=== PATIENT | male | born 1955 | race Caucasian/White ===

== ENCOUNTER 2022-12-02 14:30 | Outpatient (RCR) | payer MEDICARE, SELFPAY ==
--- NOTE | 2022-10-07 09:51 | PTOPEVAL1 ---
Assessment and note entered by Sakshi Almeida, PT Evaluation Information Assessment Status Evaluation Diagnosis unsteadiness on feet, other disorders of musculoskeletal system Therapy conditions gait abnormality, weakness Onset Subjective Information Has seen other therapies related to vertigo. Has aslo been diagnosed with Meniere's disease. Is on medication that helped for a while. Biggest issue is that over the time the balance has become worse . Had some medications from Dr. Harding and Dr. Antonio updated these. When walking on a daily basis, is very conscious of fall risks, and stairs with not rails.Has fallen a few times. In the last 2 months, has fallen 3-4 times. Limits activities because of fear of falling. Traveling and going to events, he will stay home if the area has lots of changes in terrain. Worked as an educator in high school Would like to be more confident in walking. Reported Pain Level Pain Score 0: Self Report Assessment PT Clinical Summary Pt presents with balance and gait abnormalities, rigidity, difficulty with coordination, decreased LE flexibility, and mildly decreased strength. Pt reports being limited in activities as he has great difficulty with changing terrain, slope, steps, and fall hazards. Reports has also fallen 3-4 times in the last 2 months at home. Pt will benefit from physical therapy to address deficits, and improve function to allow more independent and safe lifestyle. Plan of Care Interventions Gait Training,Hot Pack/Cold Pack,Manual Therapy, Neuro Re-education,Patient/Caregiver Educati, Therapeutic Activities,Therapeutic Exercise PT Services Indicated Yes Treatment Frequency and 2-3x weekly x 8 weeks Duration These treatments will address the objective and functional deficits as defined above. The patient will be advanced safely and appropriately in order for the patient to progress towards his/her prior level of function. Additional exercises will be introduced and as well as a comprehensive home exercise program upon discharge, if needed, ?to ensure carryover of functional gains achieved in the clinic. This treatment plan has been reviewed and agreement upon by the patient.
--- NOTE | 2022-10-07 09:53 | OPREHPOC ---
Outpatient Therapy Plan of Care This is a Multidisciplinary Plan of Care that may contain components documented by all disciplines (PT, OT, and ST.) PT Goal 1 Goal Pt will be independent in HEP Target Visit 12 PT Goal 2 Goal Pt will verbalize understanding of diagnosis and prognosis Target Visit 24 PT Problem 2 PT Problem #2 Impaired Balance PT Goal 1 Goal Pt will demo 5 time sit>stand test of 20 seconds or less without pushing LEs against chair Target Visit 12 PT Goal 2 Goal Pt will demo score of 5 times sit>green chain offbearer 15 seconds or less without pushing LEs against chair Target Visit 24 PT Problem 3 PT Problem #3 Impaired Gait PT Goal 1 Goal Pt will demo in 2 min walk test appropriate step length passing opposing LE consistently Target Visit 12 PT Goal 2 Goal Pt will demo in 2 min walk test full swing clearance bilat through full test Target Visit 24 PT Problem 4 PT Problem #4 Impaired Flexibility PT Goal 1 Goal Pt will demo improved flexibility of hamstrings and gastrocs to improve gait pattern.
--- NOTE | 2022-11-04 16:31 | PTOPPROG ---
Assessment and note entered by Sakshi Almeida, PT Assessment Status Progress Diagnosis unsteadiness on feet Onset Subjective Information Pt reports feeling easier with walking after exercises and stretching. Assessment PT Clinical Summary Pt has attended therapy consistently for 4 visits since evaluation. Per pt, has Neurology referral in a couple months. Cont to demo rigidity, shuffling gait, decreased balance and difficulty weight fhiting. However does demo improved Tinetti scores overall. Pt will benefit from continued therapy to improve rigidity, educate on improved mobility, and improve function. Plan of Care Interventions Gait Training,Hot Pack/Cold Pack,Manual Therapy, Neuro Re-education,Patient/Caregiver Educati, Therapeutic Activities,Therapeutic Exercise PT Services Indicated Yes Treatment Frequency and 1-2x weekly x 4 weeks Duration These treatments will address the objective and functional deficits as defined above. The patient will be advanced safely and appropriately in order for the patient to progress towards his/her prior level of function. Additional exercises will be introduced and as well as a comprehensive home exercise program upon discharge, if needed, ?to ensure carryover of functional gains achieved in the clinic. This treatment plan has been reviewed and agreement upon by the patient.
--- NOTE | 2022-12-02 15:27 | PTOPDC ---
Assessment and note entered by Sakshi Almeida, PT Assessment Status Discharge Diagnosis unsteadiness on feet Onset Subjective Information Reports was all pretty good until yesteday afternoon . Went to [employer] to get Flu and Covid, was told to get updated Tetanus, and pneumonia as well so got 4 shots yesterday. Legs are feeling much better for some rason . Reports is walking with more purpose, trying no to shuffle as much. Pt reports is about the same with caution but is getting out to do more and do things. Self-perceived improvement: 40% Reported Pain Level Pain Score 0: Self Report Assessment PT Clinical Summary Pt has attended 12 visits of therapy over multiple months. He reports he feels improved in his walking abilities, his legs are feeling better, and he is doing more with going out in public. He hasn't overly challenged himself with terrains and steps as of yet. Objectively pt shows minimal progress overall in sit>stand testing, Tinetti testing, and moderate improvement with ambulation when pt is applying knowledge of step length and clearance. Pt is scheduled to see Neurologist in December. Thus patient is being discharged due to max benefit at this time. Will revisit therapy as needed.
== END 2022-12-02 15:43 | disposition home or self-care (01) ==
LOC: ANHHIPT 14:30
PROVIDERS: PCP Family Medicine; Visit Provider Nurse Practitioner Family
DX: R26.81 Unsteadiness on feet (principal); R29.898 Other symptoms and signs involving the musculoskeletal system
CPT/HCPCS: 97110; 97112; 97161; 97530; 97750

== ENCOUNTER 2024-08-27 08:00 | Outpatient (RCR) | payer MEDICARE, SELFPAY ==
--- NOTE | 2024-07-24 11:02 | OPREHPOC ---
Outpatient Therapy Plan of Care This is a Multidisciplinary Plan of Care that may contain components documented by all disciplines (PT, OT, and ST.) ST Problem 1 ST Problem #[address] Goal 1 Goal / Goal Update 1. Patient will participate in stroke education in order to learn how to reduce risk factors and identify signs and symptoms of a stroke. 2. Patient will participate in education to learn compensatory strategies and exercises to use in home program to improve carryover of goals into natural environment. Target Visit [address] Problem #[address] Goal 1 Goal / Goal Update 1. Patient will complete problem solving tasks ( functional math, finance tasks, time concept tasks ) demonstrating improved attention and executive functioning with 80% accuracy independently. 2. Patient will complete short term memory tasks demonstrating use of compensatory memory strategies with 80% accuracy independently. 3. Patient will increase word-finding ability by completing divergent naming task with 15 items named in one minute. 4. Patient will complete word relationship tasks ( semantic feature analysis map, analogies, compare/ contrast, word deductions) with 80% accuracy when provided minimal verbal or visual cues.
--- NOTE | 2024-07-24 11:03 | STOPEVAL1 ---
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 He reports his notices most of his speech deficits and his agreed to attend for her. Reported Pain Level Pain Score 0: Self Report Assessment ST Clinical Summary Patient is a 68 year old male who was referred to complete a speech and language evaluation due to CVA that occurred in February of 2024. Patient reports concerns with cognition including memory and attention to tasks with increasing cognitive load. He also reports his was his main reason for attending speech therapy as she is concerned with his ability to communicate; she did not attend the evaluation. Patient completed informal cognitive evaluation to determine appropriate goals to be set. Throughout evaluation, it was noted that he was often tangential with stories to share and required cueing to return back to the evaluation. He noted that attention can sometimes be difficult to him when his brain is firing at all cylinders and there are too many things to think about at once. Patient demonstrated immediate memory that was within normal limits, but would benefit from therapeutic tasks targeting short term memory and use of compensatory memory strategies. Patient provided appropriate responses to situational problem solving questions; however, had some difficulty in problem solving tasks involving finance and time concepts. Additionally, it was observed that there were some deficits in word- finding. For example, when asked What holiday is in March?, he reported I can picture it... candy, hearts, but was unable to retrieve Valentin. This happened on several occasions throughout the evaluation. Recommend patient to receive skilled ST services 1 -2x/week for 10 sessions to target cognitive- linguistic deficits in order to improve ability to participate in ADLs/IADLs and return to PLOF. Thank you for your referral. Plan of Care Interventions Treatment for Cognitive Function ST Services Indicated Yes Treatment Frequency and 1-2x/week for 10 sessions Duration These treatments will address the objective and functional deficits as defined above. The patient will be advanced safely and appropriately in order for the patient to progress towards his/her prior level of function. Additional exercises will be introduced and as well as a comprehensive home exercise program upon discharge, if needed, ?to ensure carryover of functional gains achieved in the clinic. This treatment plan has been reviewed and agreement upon by the patient.
[2024-08-06 08:00] VITALS: O2SAT 92
--- NOTE | 2024-08-27 08:48 | STOPDC ---
Assessment and note entered by BRINDA Appiah Evaluation Information Assessment Status Discharge Reported Pain Level Pain Score 0: Self Report Assessment ST Clinical Summary Patient is a 68 year old male who was referred to complete a speech and language evaluation due to CVA that occurred in February of 2024. Patient reports concerns with cognition including memory and attention to tasks with increasing cognitive load. Patient participated in [address] appointments. He will d/c from skilled ST services due to meeting/exceeding all set goals in problem solving, memory, word finding and participating in stroke education. Patient's current deficits are physical; he required significant time to transition to and from treatment room. At our final session, he required a gait belt in order to stand from his chair in the waiting room. Patient was encouraged to seek out additional physical therapy and prioritize exercise program prescribed by his former physical therapist. Thank you for your referral. Plan of Care ST Services Indicated No
== END 2024-08-27 09:40 | disposition home or self-care (01) ==
LOC: ANHHIST 08:00
PROVIDERS: PCP Nurse Practitioner Family; Visit Provider Nurse Practitioner Family
DX: I61.9 Nontraumatic intracerebral hemorrhage, unspecified (principal); I69.320 Aphasia following cerebral infarction
CPT/HCPCS: 92507; 92523